=== PATIENT | female | born 1955 | race Caucasian/White ===

== ENCOUNTER 2019-10-16 06:29 | Day surgery (SDC) | payer OTHER ==
[~2019-10-16] VITALS: Ht 170.2 cm; Wt 79.4 kg
[~2019-10-16 06:29] MED LIST: ADULT LOW DOSE81 MG PO; FENOFIBRATE160 MG PO
[2019-10-16] MEDS ORDERED: ZETIA10 MG PO (06:45)
--- NOTE | 2019-10-16 08:26 | NUR ---
10/16/19 0826 Naz Perez 0817- PT ARRIVES TO PACU ALERT AND ORIENTED. RESP EVEN AND UNLABORED. PT REPORTS NO NAUSEA OR PAIN. 0819- OXYGEN TITRATED OFF. 0822- PT SITTING UP IN BED DRINKING ICE WATER. TOLERATING WELL.
--- NOTE | 2019-10-16 16:20 | OR ---
[facility] [address] [place], [place] [address] Signed DATE OF OPERATION: 10/16/2019 SURGEON: Hailee Leonard MD PREOPERATIVE DIAGNOSIS: History of adenomatous polyps in 2010. POSTOPERATIVE DIAGNOSIS: Normal colon. No evidence of polyps. PROCEDURE PERFORMED: Total colonoscopy to cecum. ANESTHESIA: Intravenous sedation, fentanyl 150 mcg, Versed 6 mg. INDICATION: This 63-year-old white woman is a patient of Dr. Edson Miles and had a colonoscopy in 2010, at which time an adenomatous polyp was resected. She is symptom free having no bleeding, diarrhea or constipation. She has no family history of colon cancer. She is admitted for surveillance colonoscopy understanding the risk of bleeding, infection, and perforation. FINDINGS: The prep was adequate. Irrigation was required throughout. Her colon was impressively long and serpiginous and colonoscopy was challenging, but it was accomplished safely and complete colonoscopy was undertaken to the cecum. There was no sign of polyps, diverticular formation, colitis, or cancer. DESCRIPTION OF PROCEDURE: The patient was brought to the endoscopy suite and placed in lateral decubitus position, given intravenous sedation upon slurred speech and nystagmus. Digital rectal examination was normal. The Olympus video colonoscope was passed in the rectum and manipulated throughout the colon. Considerable tortuosity was noted, but with time and effort and care, ultimately the cecum was intubated. Ileocecal valve and appendiceal orifice were normal. Scope was withdrawn from that point. Examination throughout showed no sign of polyps, diverticular formation, colitis, or cancer. Retroflex view of the rectum was normal as well. The scope was removed. The patient was taken to recovery room in good condition. Electronically Signed By: HAILEE LEONARD MD 10/16/19 1620 PATIENT NAME: MITCHELL KOWALSKI LUCINA OPERATIVE REPORT DATE OF : 55 REPORT #: [id number] PHYSICIAN: HAILEE LEONARD MD PCP: EDSON MILES MD REPORT IS CONFIDENTIAL AND NOT TO BE RELEASED WITHOUT AUTHORIZATION [facility] [address] [place], [place] [address] Signed CONCLUDING DIAGNOSIS: Normal colon to cecum. PLAN: Repeat colonoscopy in 10 years or sooner if clinically indicated. She will return to the ongoing care of Dr. Miles. MD SHEILA Hood/MODL /[id number] cc: Edson Miles MD Copies: EDSON MILES MD ~ Electronically Signed By: HAILEE LEONARD MD 10/16/19 1620 PATIENT NAME: SAIRA BORREGOMITCHELL ANN OPERATIVE REPORT DATE OF : 55 REPORT #: [id number] PHYSICIAN: HAILEE LEONARD MD PCP: EDSON MILES MD REPORT IS CONFIDENTIAL AND NOT TO BE RELEASED WITHOUT AUTHORIZATION
== END 2019-10-16 09:05 | disposition home or self-care (01) ==
LOC: DS 06:29 → OPS 06:29
PROVIDERS: Surgery
PROC: 0DJD8ZZ Inspection of Lower Intestinal Tract, Via Natural or Artificial Opening Endoscopic (ICD-10-PCS; principal; 2019-10-16 06:45)
DX: Z12.11 Encounter for screening for malignant neoplasm of colon (principal); I51.9 Heart disease, unspecified; I48.91 Unspecified atrial fibrillation; Z79.82 Long term (current) use of aspirin; Z79.899 Other long term (current) drug therapy; Z86.010 Personal history of colon polyps
CPT/HCPCS: 99153; G0500; J2250; J2405; J3010

== ENCOUNTER 2021-06-29 15:20 | Emergency (ER) | payer MEDICARE, BC ==
[~2021-06-29] VITALS: Ht 170.2 cm; Wt 79.4 kg
[~2021-06-29 15:20] MED LIST changes: +ZETIA10 MG PO
[2021-06-29] MEDS ORDERED: DILTIAZEM 24HR180 M1 PO (15:43)
[2021-06-29] MEDS ORDERED: ELIQUIS5 MG PO (18:06)
--- NOTE | 2021-07-02 12:53 | EKG ---
[facility] [address] [facility] [place], [place] [address] Signed Atrial flutter with variable AV block ST \T\ T wave abnormality, consider inferior ischemia Abnormal ECG No previous ECGs available Confirmed by JOY MONDRAGON MD ([id number]) on 07/02/2021 12:53:24 PM Electronically Signed By: JOY MONDRAGON MD 07/02/21 1253 PATIENT NAME: MITCHELL KOWALSKI Electrocardiogram DATE OF : 55 PHYSICIAN: JOY MONDRAGON MD REPORT #: [id number] REPORT IS CONFIDENTIAL AND NOT TO BE RELEASED WITHOUT AUTHORIZATION
--- NOTE | 2021-07-02 12:54 | EKG ---
[facility] [address] [place] [address] Signed Normal sinus rhythm Normal ECG When compared with ECG of 29-JUN-2021 15:30, (Unconfirmed) Sinus rhythm has replaced Atrial flutter Vent. rate has decreased BY [address] no longer depressed in Inferior leads ST no longer depressed in Lateral leads Nonspecific T wave abnormality no longer evident in Inferior leads Nonspecific T wave abnormality no longer evident in Lateral leads Confirmed by JOY MONDRAGON MD ([id number]) on 07/02/2021 12:53:48 PM Electronically Signed By: JOY MONDRAGON MD 07/02/21 1254 PATIENT NAME: MITCHELL KOWALSKI LUCINA Electrocardiogram DATE OF : 55 PHYSICIAN: JOY MONDRAGON MD REPORT #: [id number] REPORT IS CONFIDENTIAL AND NOT TO BE RELEASED WITHOUT AUTHORIZATION
== END 2021-06-29 19:46 | disposition home or self-care (01) ==
LOC: ED 15:20
DX: I48.91 Unspecified atrial fibrillation (principal); Z79.899 Other long term (current) drug therapy; Z79.82 Long term (current) use of aspirin
CPT/HCPCS: 80053; 83735; 84484; 85025; 92960; 93005; 93010; 99152; 99285-25; J2704; J3475